=== PATIENT | male | born 1980 | race Caucasian/White ===

== ENCOUNTER 2020-04-02 14:37 | Emergency (ER) | payer OTHER ==
[~2020-04-02] VITALS: Ht 177.8 cm; Wt 79.6 kg
[2020-04-02 14:43] VITALS: BP 147/93
--- NOTE | 2020-04-02 15:00 | NUR ---
SMALL WOUND NOTED BOTTOM OF LEFT FOOT, NO ACTIVE BLEEDING AT THIS TIME
[2020-04-02] MEDS ORDERED: AMLO10TA8 PO (15:01)
[2020-04-02] MEDS ORDERED: TELM80TA8 PO (15:01)
[2020-04-02] MEDS ORDERED: LIDOCAINE-MPF 1%, 5ML ONE (15:14)
[2020-04-02] MEDS ORDERED: LIDOCAINE 1%, 10ML INFIL ONE (15:30)
[2020-04-02] MEDS ORDERED: DIPH,PERTUSS(ACELL),TET VAC/PF 0.5 ML IM-VACC ONE ×2 (16:21→16:30)
[2020-04-02] MEDS ORDERED: NEOSPORIN OINT. PKT 1 PACKET ONE (16:28)
--- NOTE | 2020-04-02 16:42 | NUR ---
ADACEL NOT GIVEN BECAUSE PT STATES HE GOT ADACEL 3 WEEKS AGO
== END 2020-04-02 16:49 | disposition home or self-care (01) ==
LOC: ED 15:24
DX: S90.852A Superficial foreign body, left foot, initial encounter (principal); I10 Essential (primary) hypertension; X58.XXXA Exposure to other specified factors, initial encounter; Y93.89 Activity, other specified; Y92.009 Unspecified place in unspecified non-institutional (private) residence as the place of occurrence of the external cause; Y99.8 Other external cause status
CPT/HCPCS: 10120; 93005; 99285